=== PATIENT | male | born 1985 | race Two or more races ===

== ENCOUNTER 2025-01-16 10:15 | Emergency (ER) | payer OTHER ==
[~2025-01-16] VITALS: Ht 172.7 cm; Wt 77.3 kg
[~2025-01-16 10:15] MED LIST: BUPR1TAB46 SL
[2025-01-16 10:24] VITALS: TEMP 98
[2025-01-16] MEDS ORDERED: SULF-261 PO (12:48)
[2025-01-16] MEDS ORDERED: CEPH-558 PO (12:48)
[2025-01-16 13:03] VITALS: BP 105/64; PULSE 67; RESP 16; O2SAT 100
== END 2025-01-16 13:07 | disposition home or self-care (01) ==
LOC: EMS 10:33
DX: S21.102A Unspecified open wound of left front wall of thorax without penetration into thoracic cavity, initial encounter (principal); Z98.890 Other specified postprocedural states; Z88.6 Allergy status to analgesic agent; Z86.19 Personal history of other infectious and parasitic diseases; Z79.899 Other long term (current) drug therapy; X58.XXXA Exposure to other specified factors, initial encounter; Y93.89 Activity, other specified; Y92.89 Other specified places as the place of occurrence of the external cause; Y99.8 Other external cause status
CPT/HCPCS: 99283; Z7502